=== PATIENT | male | born 1980 | race Caucasian/White ===

== ENCOUNTER 2017-01-20 21:27 | Emergency (ER) | payer BC ==
[2017-01-20 22:13] LABS: BASO % 0.4 % (0-2); EOS % 1.5 % (0-7); EOSINOPHIL ABSOLUTE COUNT 0.1 tho/cmm (0.0-0.7); HCT-HEMATOCRIT 40.2 % (36.0-53.5); HGB-HEMOGLOBIN 14.6 gm/dl (13.5-17.0); IMMATURE GRANULOCYTES ABSOLUTE 0.04 tho/cmm (0-0.03); IMMATURE GRANULOCYTES PERCENT 0.5 % (0-0.3); LYMPH % 46.8 % (20-45); LYMPH ABSOLUTE COUNT 3.4 tho/cmm (0.8-4.5); MCH (MEAN CORPUSCULAR HGB) 30.9 pg (28.0-32.0); MCHC MEAN CORPUSCULAR HGB CONC 36.3 % (32.0-36.0); MCV (MEAN CELL VOLUME) 85.2 fl (82.0-96.0); MEAN PLATELET VOLUME 9.9 cmc (9.4-12.4); MONOCYTE ABSOLUTE COUNT 0.4 tho/cmm (0.0-1.2); NEUTROPHIL ABSOLUTE COUNT 3.3 tho/cmm (1.6-8.0); NEUTROPHIL-AUTOMATED 3.3 tho/cmm (1.6-8.0); NEUTROPHILS % 44.8 % (40-80); PLATELET COUNT 228 tho/cmm (150-450); RED BLOOD COUNT 4.72 mil/cmm (4.40-5.70); RED CELL DISTRIBUTION WIDTH 12.5 % (12.4-16.4); WHITE BLOOD COUNT 7.3 tho/cmm (4.0-10.0)
[2017-01-20 22:16] LABS: PROTHROMBIN TIME 11.2 SECONDS (9.0-13.6)
[2017-01-20 22:30] LABS: ALB/GLOB RATIO 1.2 (0.8-2.0); ALBUMIN 3.9 g/dl (3.5-5.0); ALCOHOL (ETOH) 219 mg/dl (<10); ALKALINE PHOSPHATASE 86 U/L (33-138); ANION GAP 13 mmol/L (0-20); AST/SGOT 33 U/L (10-40); BILIRUBIN,TOTAL 0.6 mg/dl (0.0-1.5); BLOOD UREA NITROGEN 11 mg/dl (6-24); CALCIUM 8.3 mg/dl (8.5-10.5); CARBON DIOXIDE-VENOUS 24 mmol/L (22-32); CHLORIDE 118 mmol/l (96-110); CREATININE 0.92 mg/dl (0.60-1.30); GLUCOSE 104 mg/dL (70-110); POTASSIUM 3.5 mmol/L (3.7-5.1); SODIUM 151 mmol/L (135-145); eGFR VALUE FOR BLACK >90 mL/Min
[2017-01-20 22:32] LABS: ALT/SGPT 44 U/L (12-78)
[2017-01-20] MEDS ORDERED: NO HOME MEDICATION XX (23:14)
== END 2017-01-21 00:16 | disposition other institution (70) ==
LOC: EDMED 21:27
PROVIDERS: Emergency Medicine
DX: S42.021A Displaced fracture of shaft of right clavicle, initial encounter for closed fracture (principal); S01.01XA Laceration without foreign body of scalp, initial encounter; Z23 Encounter for immunization; V18.4XXA Pedal cycle driver injured in noncollision transport accident in traffic accident, initial encounter; Y93.55 Activity, bike riding; Y92.410 Unspecified street and highway as the place of occurrence of the external cause; Y99.8 Other external cause status
CPT/HCPCS: G0480; J2405; J7030